=== PATIENT | female | born 1980 | race Caucasian/White ===

== ENCOUNTER 2019-11-19 17:34 | Emergency (ER) | payer SELFPAY ==
[2019-11-19] MEDS ORDERED: KETOROLAC 30 MG/ML INJ ONE (18:16)
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
[2019-11-19 19:38] VITALS: BP 157/106; TEMP 98.2; O2SAT 100
== END 2019-11-19 19:18 | disposition home or self-care (01) ==
LOC: ER 17:34
DX: S00.83XA Contusion of other part of head, initial encounter (principal); W50.0XXA Accidental hit or strike by another person, initial encounter; Y93.02 Activity, running; Y92.832 Beach as the place of occurrence of the external cause; Z88.0 Allergy status to penicillin; Z88.5 Allergy status to narcotic agent
CPT/HCPCS: 70486; 76377; 96372; 99283